=== PATIENT | female | born 1955 | race Caucasian/White ===

== ENCOUNTER 2019-07-06 20:19 | Inpatient (IN) | payer MEDICARE, OTHER ==
[~2019-07-06] VITALS: Ht 157.5 cm; Wt 157.0 kg
[2019-07-06] MEDS ORDERED: RIOMET500 MG/5 M (22:02)
[2019-07-06 22:03] LABS: BASO % 0.2 % (0.0-2.0); EOS % 0.2 % (0-4.0); GRAN # 3.3 (1.4-6.5); GRAN % 73.7 % (42.2-75.2); LYMPH # 0.7 (1.2-3.4); LYMPH % 16.2 % (20.0-51.0); MEAN CELL VOLUME 97 fl (80.0-100.0); MEAN CORPUSCULAR HGB CONC 31 g/dl (33.0-37.0); MEAN PLATELET VOLUME 10.6 fl (7.4-10.4); MONO # 0.4 (0.1-0.6); MONO % 9.3 % (1.7-9.3); PLATELET COUNT 136 K/mm3 (130-400); RED BLOOD COUNT 6.32 M/mm3 (4.10-5.30); REDCELL DISTRIBUTION WIDTH-CV 19.3 % (11.5-14.5)
[2019-07-06 22:08] LABS: ALBUMIN 3.3 gm/dL (3.5-5.0); BILIRUBIN,TOTAL 1.7 mg/dL (0.0-1.0); CALCIUM 8.2 mg/dL (8.4-10.2); CREATININE, serum 0.93 (0.52-1.25); MAGNESIUM 2.1 mg/dL (1.6-2.3); POTASSIUM 4.7 mmol/L (3.4-5.0); TOTAL PROTEIN 5.9 gm/dL (6.4-8.2)
[2019-07-06 22:20] LABS: TROPONIN-I 0.028 ng/mL (0.000-0.035)
[2019-07-06 22:20] LABS: HEMATOCRIT 61.5 % (37.0-47.0); HEMOGLOBIN 19.1 g/dl (12.5-16.0); MEAN CORPUSCULAR HEMOGLOBIN 30 pg (27.0-31.0)
[2019-07-06 22:38] LABS: TSH w REFLEX 3.55 uIU/mL (0.465-4.680)
[2019-07-06 23:37] LABS: ARTERIAL BLD GAS O2 SATURATION 89.9 % (92-100); ARTERIAL BLD GAS TCO2 CT 38.1; ARTERIAL BLOOD GAS BASE EXCESS 3.7 (-2-2); ARTERIAL BLOOD GAS HCO3 35.5 meq/L (22-26); ARTERIAL BLOOD GAS PO2 60.1 mmHg (80-100); ARTERIAL BLOOD GAS pH 7.25 (7.35-7.45)
[2019-07-06 23:38] LABS: ARTERIAL BLOOD GAS PCO2 83.8 mmHg (35-45)
[2019-07-07] VITALS (1171 sets, daily range): BP systolic 104–124; BP diastolic 68–93; PULSE 52–82; TEMP 97.4–98.2; O2SAT 61–100
--- NOTE | 2019-07-07 00:55 | NUR ---
Arrived to the unit via stretcher; On BIPAP on arrival. Patient alert and oriented able to answer most questions appropriately, however speech is slow patient requires some time to process her answers. Attached to all monitors at this time.
--- NOTE | 2019-07-07 01:30 | NUR ---
Hospitalist at bedside; stated may give PRN ativan to help patient tolerate the BIPAP mask. Patient frequently pulling at mask and re-adjusting on her face. Will attempt to replace the current mask with the full face mask when patient is more calm and tolerating BIPAP better.
--- NOTE | 2019-07-07 03:00 | NUR ---
Three attempts were made to place neil with 3 different staff members All attempts unsucessful. Placed [place]: will continue to monitor.
--- NOTE | 2019-07-07 03:14 | NUR ---
Currently on BIPAP; mostly tolerating well but will occasionally pull mask off or pull tubing from mask. Staff reminds patient at these times about the importance of keeping the mask on to mainatin adaquate respiratory status.
--- NOTE | 2019-07-07 04:00 | NUR ---
02 sats ranging 87-90% on 45% BIPAP. Notified RT. Repositioned and put HOB at 40 degrees. 02 up to 90-93% after repositioning; will continue to monitor.
[2019-07-07] MEDS ORDERED: GLUCOPHAGE500 MG/TAB PO (04:03)
[2019-07-07] MEDS ORDERED: COMBIRESP IH (04:12)
[2019-07-07] MEDS ORDERED: MAXZIDE-25MG TA1 TAB PO (04:13)
[2019-07-07 04:34] LABS: COLLECTION METHOD CLEAN CATCH
[2019-07-07 04:47] LABS: PH 5 (5-8); SQUAMOUS EPITHELIAL 0-2 /hpf; URINE APPEARANCE Clear; URINE BACTERIA None Seen /hpf; URINE BILIRUBIN Negative (NEGATIVE); URINE BLOOD 3+ (NEGATIVE); URINE COLOR Yellow; URINE GLUCOSE Negative (NEGATIVE); URINE KETONE Negative (NEGATIVE); URINE LEUKOCYTE ESTERASE Negative (NEGATIVE); URINE NITRATE Negative (NEGATIVE); URINE PROTEIN(semi-quant) 2+ (NEGATIVE); URINE UROBILINOGEN Negative (NEGATIVE)
[2019-07-07 04:48] LABS: URINE PROTEIN:CREAT RATIO 1.07 (0.00-0.14)
--- NOTE | 2019-07-07 05:00 | NUR ---
Patient Systolic BP 80's-90's with MAPS greater than 65. HR upper 50's. Hospitalist notified in person. Reported that BP and HR trended down after administration of PRN Ativan. Ok with BP readings at this time. Also informed hospitalist that neil catheter was not able to be placed and vane has an external female catheter.
--- NOTE | 2019-07-07 05:40 | NUR ---
Patient de-saturating to low 80's. Slight airleak heard adjusted facemask and head postition. O2 increased to 88%. Notified RT; increased FI02 to 50%
--- NOTE | 2019-07-07 06:34 | NUR ---
02 saturations currenlty 95% on 50% FI02.
[2019-07-07 06:46] LABS: BASO % 0.3 % (0.0-2.0); GRAN # 3.5 (1.4-6.5); LYMPH # 0.3 (1.2-3.4); LYMPH % 8.6 % (20.0-51.0); MEAN CELL VOLUME 99 fl (80.0-100.0); MEAN CORPUSCULAR HGB CONC 31 g/dl (33.0-37.0); MONO # 0.1 (0.1-0.6); MONO % 2.3 % (1.7-9.3); PLATELET COUNT 120 K/mm3 (130-400); RED BLOOD COUNT 6.28 M/mm3 (4.10-5.30); REDCELL DISTRIBUTION WIDTH-CV 19.4 % (11.5-14.5)
[2019-07-07 06:47] LABS: MEAN CORPUSCULAR HEMOGLOBIN 30 pg (27.0-31.0)
[2019-07-07 06:56] LABS: ALBUMIN 3.3 gm/dL (3.5-5.0); BILIRUBIN,TOTAL 1.7 mg/dL (0.0-1.0); CALCIUM 8.2 mg/dL (8.4-10.2); CREATININE, serum 1.03 (0.52-1.25); POTASSIUM 4.5 mmol/L (3.4-5.0)
--- NOTE | 2019-07-07 07:00 | NUR ---
RECEIVED REPORT FROM TATO BUCK. PT RESTING IN BED ON BIPAP WITH FIO2 50% AND 20/8. VSS. CALL LIGHT WITHIN REACH. NOTED PUREWICK IN PLACE AT THIS TIME.
--- NOTE | 2019-07-07 07:12 | NUR ---
Bedside report given to TATO Paredes and TATO Carnes. Patient care transfered.
[2019-07-07 07:24] LABS: ARTERIAL BLD GAS O2 SATURATION 94.6 % (92-100); ARTERIAL BLOOD GAS BASE EXCESS 2.4 (-2-2); ARTERIAL BLOOD GAS HCO3 34.4 meq/L (22-26); ARTERIAL BLOOD GAS PO2 76.2 mmHg (80-100); ARTERIAL BLOOD GAS pH 7.23 (7.35-7.45)
[2019-07-07 07:25] LABS: ARTERIAL BLOOD GAS PCO2 84.7 mmHg (35-45)
--- NOTE | 2019-07-07 07:25 | NUR ---
DR BOUCHER AT BEDSIDE FOR ASSESSMENT AND NOTIFIED OF BNP. NO NEW ORDERS RECEIVED AT THIS TIME. PHYSICIAN STATES WE WILL MONITOR AND SEE HOW PT DOES WITH CURRENT ORDER OF DIURETICS.
--- NOTE | 2019-07-07 08:51 | NUR ---
Report received from Ciarra GODWIN and care resumed. Pt on bipap upon assessment. Cassidy cath placed as ordered. Dr Banks at bedside and reviewed labs. Would like to intubate pt bases of ABG;s. Pt states she would like to speak with family regarding this decision. Multiple attempts made to reach , Justo, without success. KEKE Calles contacted and will reach out to [facility] for well check to pt's house. Pt currently having echo and venous duplex performed at bedside. Sarita ZEPEDA also called regarding PICC line order. Will continue to follow.
--- NOTE | 2019-07-07 09:28 | NUR ---
Pt's arrived and spoke with Dr Banks regarding pt status and need for intubation. would like to proceed but pt still very adament about not being intubated. Dr Banks stated he will check back later. AIVS at bedside placing PICC at this time.
[2019-07-07 10:43] LABS: ARTERIAL BLD GAS O2 SATURATION 94.2 % (92-100); ARTERIAL BLD GAS TCO2 CT 35.9; ARTERIAL BLOOD GAS BASE EXCESS 4.4 (-2-2); ARTERIAL BLOOD GAS HCO3 33.9 meq/L (22-26); ARTERIAL BLOOD GAS PO2 69.2 mmHg (80-100); ARTERIAL BLOOD GAS pH 7.32 (7.35-7.45)
--- NOTE | 2019-07-07 14:45 | NUR ---
DR VICTOR AT BEDSIDE FOR ASSESSMENT AND TO DISCUSS WITH PT AGAIN ABOUT HER WISHES OF INTUBATION. PT STILL REFUSES INTUBATION AT THIS TIME. ORDERS FOR ABG, RT AT BEDSIDE.
[2019-07-07 15:18] LABS: ARTERIAL BLD GAS O2 SATURATION 95.9 % (92-100); ARTERIAL BLD GAS TCO2 CT 38.1; ARTERIAL BLOOD GAS BASE EXCESS 10.7 (-2-2); ARTERIAL BLOOD GAS HCO3 36.5 meq/L (22-26); ARTERIAL BLOOD GAS PCO2 50.3 mmHg (35-45); ARTERIAL BLOOD GAS PO2 69.8 mmHg (80-100); ARTERIAL BLOOD GAS pH 7.48 (7.35-7.45)
--- NOTE | 2019-07-07 15:26 | NUR ---
DR VICTOR AT BEDSIDE DISCUSSING CODE STATUS. PT WISHES TO REMAIN A FULL CODE AND TO ONLY BE INTUBATED IN AN ACUTE CODE SITUATION.
--- NOTE | 2019-07-07 16:32 | NUR ---
MERCHANDISE TEAM MANAGER student met with the patient to discuss a discharge plan. The patient lives in [place] with her , Justo. The patient has a walker and reports independence with ADLs prior to this hospitalization. The patient's PCP is Dr. Biggs and receives medications from [facility] pharmacy with no difficulties. The patient does not have advanced directives in the EMR but was interested in a DPOA-HC form. MERCHANDISE TEAM MANAGER student provided the form. director of student services will continue to follow to ensure a safe discharge.
--- NOTE | 2019-07-07 18:20 | NUR ---
UPDATED AT BEDSIDE ON PT'S STATUS AND POC. VERBALIZED UNDERSTANDING. EDUCATED ON VISITING HOURS, VERBALIZED UNDERSTANDING. PT SLEEPING EASILY AT THIS TIME. VSS. PT REMAINS ON BIPAP AT 55%. CALL LIGHT WITHIN REACH. FC PATENT AND DRAINING TO GRAVITY.
--- NOTE | 2019-07-07 20:05 | NUR ---
Patient requesting to eat. Removed BIPAP and placed on 5L nc. Tolerated NC well ; 02 saturations ranging from 90-93%. Ate 100% of meal. Incontinuent of stool; provided a bed bath and repositioned. BIPAP replaced for bed after being off for approximately 45 minutes. No concerns at this time; will continue to monitor.
[2019-07-08] VITALS (1248 sets, daily range): BP systolic 106–127; BP diastolic 70–87; PULSE 59–91; TEMP 97.7–98.7; O2SAT 70–100
--- NOTE | 2019-07-08 02:30 | NUR ---
On break from BIPAP; on 8L oxymask and o2 mid 90's. Will continue to monitor.
[2019-07-08 05:14] LABS: ARTERIAL BLD GAS TCO2 CT 35.9; ARTERIAL BLOOD GAS HCO3 34.3 meq/L (22-26); ARTERIAL BLOOD GAS PCO2 52.2 mmHg (35-45); ARTERIAL BLOOD GAS PO2 70.5 mmHg (80-100); ARTERIAL BLOOD GAS pH 7.44 (7.35-7.45)
[2019-07-08 05:44] LABS: MEAN CORPUSCULAR HGB CONC 32 g/dl (33.0-37.0); MEAN PLATELET VOLUME 10.8 fl (7.4-10.4); PLATELET COUNT 121 K/mm3 (130-400); RED BLOOD COUNT 5.61 M/mm3 (4.10-5.30); REDCELL DISTRIBUTION WIDTH-CV 18.3 % (11.5-14.5)
[2019-07-08 05:49] LABS: HEMATOCRIT 52.7 % (37.0-47.0); HEMOGLOBIN 16.9 g/dl (12.5-16.0); MEAN CELL VOLUME 94 fl (80.0-100.0); MEAN CORPUSCULAR HEMOGLOBIN 30 pg (27.0-31.0)
[2019-07-08 05:52] LABS: CALCIUM 7.9 mg/dL (8.4-10.2); CREATININE, serum 0.97 (0.52-1.25); POTASSIUM 4.2 mmol/L (3.4-5.0)
[2019-07-08 06:07] LABS: ANISOCYTOSIS 2+; LYMPHOCYTE 3 % (20.0-51.0); NEUTROPHILS 91 % (42.0-75.2); PLATELET ESTIMATE DECREASED (NORMAL)
[2019-07-08 06:08] LABS: HYPOCHROMIA 1+
--- NOTE | 2019-07-08 14:40 | NUR ---
Action: SW met with SM and her was present in session. PAtient did give SW permission to discuss information with her in the room. SW followed up as requested, as patient was thinking about submitting a DPOA. Patient was still undecisive and so this SW discussed the importance of a DPOA. PAtient asked this SW to leave one as her already had one that stated she would manage decisions if needed. Action: SW left DPOA form which was partially filled out with patient and her .
--- NOTE | 2019-07-08 19:15 | NUR ---
Assessment complete; patient currenlty sitting in recliner. Denies any complaints at this time. VS within normal limits. Currenlty on 4L NC and will place BIPAP when ready for bed. Lung sounds wheezy; will get breathing treatment via RT.
--- NOTE | 2019-07-08 22:20 | NUR ---
Requesting to get back into chair from recliner;assisted with two staff members and tolerated transfere well. Does not want to put BIPAP on at this time as not ready to sleep. Will check back around 2300.
[2019-07-09] VITALS (760 sets, daily range): BP systolic 101–131; BP diastolic 69–99; PULSE 68–96; TEMP 97.6–98.3; O2SAT 82–100
--- NOTE | 2019-07-09 | NUR ---
Placed on BIPAP at time, and RT notified. No concerns or complaints reported.
--- NOTE | 2019-07-09 03:55 | NUR ---
Complaining of pain on nose from wearing mask. Also reporting that she "can't sleep the the mask" and has been pulling and tugging on the mask. Will take a break from BIPAP at this time. Re-placed HF cannula at 4L.
[2019-07-09 05:41] LABS: HEMOGLOBIN 16.8 g/dl (12.5-16.0); MEAN CELL VOLUME 96 fl (80.0-100.0); MEAN CORPUSCULAR HEMOGLOBIN 30 pg (27.0-31.0); MEAN CORPUSCULAR HGB CONC 32 g/dl (33.0-37.0); MEAN PLATELET VOLUME 10.3 fl (7.4-10.4); PLATELET COUNT 104 K/mm3 (130-400); RED BLOOD COUNT 5.56 M/mm3 (4.10-5.30); REDCELL DISTRIBUTION WIDTH-CV 18.4 % (11.5-14.5)
[2019-07-09 05:56] LABS: HEMATOCRIT 53.2 % (37.0-47.0)
[2019-07-09 06:04] LABS: CALCIUM 7.7 mg/dL (8.4-10.2); CREATININE, serum 0.89 (0.52-1.25); POTASSIUM 3.4 mmol/L (3.4-5.0)
[2019-07-09 06:10] LABS: ANISOCYTOSIS 2+; HYPOCHROMIA 2+; LYMPHOCYTE 1 % (20.0-51.0); NEUTROPHILS 93 % (42.0-75.2); PLATELET ESTIMATE DECREASED (NORMAL)
--- NOTE | 2019-07-09 07:17 | NUR ---
Bedside report given to TATO Smith. Patient care transfered.
--- NOTE | 2019-07-09 12:56 | NUR ---
REPORT GIVEN TO TATO WASHINGTON. PT TO GO TO MEDICAL FLOOR RM 358.
--- NOTE | 2019-07-09 13:24 | NUR ---
PT TO MEDICAL FLOOR RM 358 VIA WC. PERSONAL ITEMS WITH PT TO ROOM TO INCLUDE PT NEBULIZER. PT CHART IN [facility]ICAL NURSING [facility] [place]. TATO WASHINGTON AWARE OF PTS ARRIVAL TO 358 AND PRESENT TO HELP ASSIST PT FROM WC TO RESTROOM.
--- NOTE | 2019-07-09 19:10 | NUR ---
Pt resting in bed since arriving to floor, no C/O pain.
--- NOTE | 2019-07-09 20:45 | NUR ---
Shift assessment complete. Pt resting in bed, awake, a&o, cooperative c cares. Pt denies pain or other c/o at this time. PICC noted to R upper arm, patent c good blood return. O2 per NC. Pt denies needs at this time. Call light in reach, bed alarm on. Will continue to monitor.
[2019-07-10 00:31] VITALS: BP 108/62; PULSE 69; TEMP 97.6
[2019-07-10 03:54] VITALS: BP 102/67; PULSE 86; TEMP 97.8
[2019-07-10 06:10] LABS: HEMOGLOBIN 16.8 g/dl (12.5-16.0); MEAN CELL VOLUME 97 fl (80.0-100.0); MEAN CORPUSCULAR HEMOGLOBIN 30 pg (27.0-31.0); MEAN CORPUSCULAR HGB CONC 32 g/dl (33.0-37.0); MEAN PLATELET VOLUME 10.8 fl (7.4-10.4); PLATELET COUNT 102 K/mm3 (130-400); RED BLOOD COUNT 5.53 M/mm3 (4.10-5.30); REDCELL DISTRIBUTION WIDTH-CV 17.8 % (11.5-14.5)
[2019-07-10 06:14] LABS: HEMATOCRIT 53.4 % (37.0-47.0)
[2019-07-10 06:30] LABS: CALCIUM 7.6 mg/dL (8.4-10.2); CREATININE, serum 0.93 (0.52-1.25); MAGNESIUM 1.5 mg/dL (1.6-2.3); POTASSIUM 3.2 mmol/L (3.4-5.0)
[2019-07-10 06:31] LABS: ANISOCYTOSIS 2+; HYPOCHROMIA 2+; LYMPHOCYTE 2 % (20.0-51.0); NEUTROPHILS 97 % (42.0-75.2); PLATELET ESTIMATE DECREASED (NORMAL)
[2019-07-10 08:00] VITALS: BP 118/70; PULSE 85; TEMP 98.1
--- NOTE | 2019-07-10 09:55 | NUR ---
SW attended clinical rounds. The patient's oxygen needs are up from yesterday. PT/OT have been ordered. SW to continue to follow to assist with recommendations.
--- NOTE | 2019-07-10 10:10 | NUR ---
Assessment completed, alert/oriented, vital signs stable, denies pain or discomfort, she reprots feeling better today, she is on 2-4L. o2 and is not being very compliant with bi-pap/ reports " she does not like it", we have explained benefits of wearing it though, heart RRR/ distal pulses are palpable but difficult to palpate as she has 3+ edema to BLE, IV lasix given and patient has neil for accurate I/O, replaicng Mg and K, discussed plan of care with hospitalist, she denies needs at this time
--- NOTE | 2019-07-10 12:17 | NUR ---
First visit from the dry cleaner. No needs right now.
[2019-07-10 12:26] VITALS: BP 125/75; PULSE 84; TEMP 98.5
--- NOTE | 2019-07-10 15:44 | NUR ---
GUERA met with the patient to review discharge plan and to discuss PT/OT's recommendation of home with family assistance vs post-acute rehab. The patient reports that she may be open to post-acute rehab, but needs to discuss this option and the different SNF's with her chantal. GUERA provided the patient with Medicare.[employer]'s list of nursing homes in and around the [facility]. GUERA to continue to follow.
[2019-07-10 16:50] VITALS: BP 126/78; PULSE 83; TEMP 98.3
--- NOTE | 2019-07-10 19:00 | NUR ---
REPORT RECEIVED FROM TATO MORELAND, CARE OF PT ASSUMED AT THIS TIME. BEDSIDE ROUNDS COMPLETED AND ALL PT NEEDS MET. CALL LIGHT WITHIN REACH.
--- NOTE | 2019-07-10 19:48 | NUR ---
PT IS DROWSY, AWAKENS EASILY, OX4, PLEASANT. PT DENIES FEELING SOB AT REST. O2 AT 3L PER NC AT THIS TIME. PT APPEARS DYSPNEIC WITH ACTIVITY WHEN MOVING IN BED. EDEMA NOTED TO BLE'S 3-4+ PITTING THROUGH MIDTIBS. PICC LINE TO RUE, CLEAR, WRAPPED WITH CHALO WRAP. LS ARE COARSE WITH AUDIBLE INS/EXP WHEEZES NOTED THROUGHOUT ALL BATRES. HR REG, RADIAL PULSES PALPABLE 2+, PEDAL PULSES 1+ BILAT. TREVIÑO IN PLACE AND IS DRAINING CLEAR, YELLOW URINE. PT DENIES ANY PAIN AT THIS TIME. CALL LIGHT WITHIN REACH.
[2019-07-10 20:23] VITALS: BP 111/72; PULSE 92; TEMP 98
[2019-07-11] VITALS (7 sets, daily range): BP systolic 105–125; BP diastolic 68–76; PULSE 72–93; TEMP 97.8–98.6
--- NOTE | 2019-07-11 06:06 | NUR ---
PT HAS SLEPT THROUGH THE NIGHT WITHOUT ISSUES. O2 IN PLACE AT 4L PER NC, FREQUENTLY REPLACING CANNULA TO NOSE WHILE PT SLEEPING. PT HAS DENIED PAIN OR OTHER ISSUES. TREVIÑO CATH DRAINING CLEAR, YELLOW URINE. NO DISTRESS NOTED THROUGH THE NIGHT. CALL LIGHT WITHIN REACH.
[2019-07-11 06:32] LABS: BASO % 0.2 % (0.0-2.0); GRAN # 3.9 (1.4-6.5); GRAN % 76.9 % (42.2-75.2); HEMOGLOBIN 16.4 g/dl (12.5-16.0); LYMPH # 0.6 (1.2-3.4); MEAN CELL VOLUME 98 fl (80.0-100.0); MEAN CORPUSCULAR HEMOGLOBIN 30 pg (27.0-31.0); MEAN CORPUSCULAR HGB CONC 31 g/dl (33.0-37.0); MEAN PLATELET VOLUME 10.5 fl (7.4-10.4); MONO # 0.5 (0.1-0.6); MONO % 10.1 % (1.7-9.3); PLATELET COUNT 88 K/mm3 (130-400); RED BLOOD COUNT 5.47 M/mm3 (4.10-5.30); REDCELL DISTRIBUTION WIDTH-CV 17.4 % (11.5-14.5)
[2019-07-11 06:42] LABS: CALCIUM 7.5 mg/dL (8.4-10.2); CREATININE, serum 0.8 (0.52-1.25); MAGNESIUM 1.8 mg/dL (1.6-2.3); POTASSIUM 3.1 mmol/L (3.4-5.0)
[2019-07-11 07:06] LABS: HEMATOCRIT 53.6 % (37.0-47.0)
--- NOTE | 2019-07-11 07:58 | NUR ---
REFUSED INCRUSE, STATING SHE GETS NO RESULT FROM IT.
--- NOTE | 2019-07-11 09:00 | NUR ---
Patient sitting up in bed, trying to watch TV, but cable is not working. Nursing staff is aware. Patient is A&Ox4, denies pain and discomfort. IV CDI. VSS, 4L NC O2, no reported SOB. No further needs expressed from patient. Call light within reach. Bed alarm on.
--- NOTE | 2019-07-11 09:22 | NUR ---
GUERA attended clinical rounds. The patient is to have her catheter removed today. The hospitalist discussed post-acute rehab and a tentative discharge for tomorrow or . The patient reports that she would be open to post-acute rehab. GUERA then followed up with the patient. The patient reports that she would be agreeable to rehab and would prefer a facility in [place]. GUERA presented and explained the Patient Choice Form to the patient. The patient preferred either [facility], [facility], or [facility]. Patient Choice Form signed by the patient and she was provided a copy. GUERA contacted and faxed a referral to all three facilities. SW awaiting their screens.
--- NOTE | 2019-07-11 09:49 | NUR ---
Sheree, at [facility], reports that they are able to accept the patient. SW to inform the patient and will continue to follow.
--- NOTE | 2019-07-11 11:00 | NUR ---
Cassidy catheter removed. Pericare provided with cleansing cloths before and after removal. 10mls sterile water in balloon removed. Patient tolerated well. Patient informed to call nursing staff when needing to use the restroom. Patient verbalized an understanding. Call light within reach
--- NOTE | 2019-07-11 12:51 | NUR ---
Marlon at [facility], reports that they are able to accept the patient. SW to inform the patient and will continue to follow.
--- NOTE | 2019-07-11 15:11 | NUR ---
Follow-up; Patient thanked Conventions Assistant for looking in on her though a physical therapist was with her. Conventions Assistant let patient know she was available throughout the day to listen and/or offer spiritual prayer.
--- NOTE | 2019-07-11 16:27 | NUR ---
GUERA met with the patient to inform of [facility] acceptance. The patient reports that she would like to discuss which facility to go to with her this evening. GUERA to continue to follow.
--- NOTE | 2019-07-11 17:00 | NUR ---
Pt stable this afternoon. Pt incontinent of urine after neil discontinued. Pt pericares provided by john. Pt reminded to call for help to use the restroom. Pt has call light in reach and nasal cannula in place. Pt denies pain or SOB. Pt also reminded of her 1L fluid restriction. Pt denies further needs at this time.
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
--- NOTE | 2019-07-11 19:13 | NUR ---
Pt report given to Gretel GODWIN.
--- NOTE | 2019-07-11 20:15 | NUR ---
Shift assessment complete. Pt resting in bed, awake, a&o, cooperative c cares. Pt denies pain or any other c/o at this time. PICC noted to R upper arm, patent c good blood return. Tele in place. O2 per NC. Pt denies needs at this time. Call light in reach, bed alarm on. Will continue to monitor.
[2019-07-12 03:53] VITALS: BP 100/59; PULSE 100; TEMP 97.6
[2019-07-12 06:19] LABS: HEMOGLOBIN 16.2 g/dl (12.5-16.0); MEAN CELL VOLUME 100 fl (80.0-100.0); MEAN CORPUSCULAR HEMOGLOBIN 30 pg (27.0-31.0); MEAN CORPUSCULAR HGB CONC 30 g/dl (33.0-37.0); PLATELET COUNT 91 K/mm3 (130-400); REDCELL DISTRIBUTION WIDTH-CV 17.5 % (11.5-14.5)
[2019-07-12 06:21] LABS: HEMATOCRIT 54.7 % (37.0-47.0)
[2019-07-12 06:32] LABS: CALCIUM 7.5 mg/dL (8.4-10.2); CREATININE, serum 0.74 (0.52-1.25); MAGNESIUM 1.7 mg/dL (1.6-2.3)
[2019-07-12 06:39] LABS: POTASSIUM 2.8 mmol/L (3.4-5.0)
--- NOTE | 2019-07-12 07:14 | NUR ---
RA SPO2 84% A SLEEP. PLACED ON 4 LPM NC 91%
--- NOTE | 2019-07-12 07:30 | NUR ---
Initial; pt is laying in bed, last K+ level was 2.8, started K+ protocol. Pt is content, no complaint of pain or discomfort. Assessment complete. Pt has end expiratory wheezing in upper lobes bilaterally, and clear in all other lobes. 3+ pitting edema bilateral lower extremeties. Pt is a 1-2 person assist.
[2019-07-12 07:40] VITALS: BP 111/66; PULSE 72; PULSE 84; TEMP 97.7
[2019-07-12 07:56] LABS: LYMPHOCYTE 22 % (20.0-51.0); NEUTROPHILS 70 % (42.0-75.2); PLATELET ESTIMATE DECREASED (NORMAL)
--- NOTE | 2019-07-12 08:54 | NUR ---
Compa, at [facility], reports that they are able to accept the patient. SW to inform the patient.
--- NOTE | 2019-07-12 09:47 | NUR ---
GUERA met with the patient and the patient's , Justo, to inform of all three facilities being able to accept and to find out their preference. The patient's reports that [facility] is closer to their home and would prefer them. The patient was in agreeance to this. GUERA contacted and updated Sheree at [facility]. SW to update [employer] and [facility]. The patient's reports that he does not have a cell phone and is normally at work. He requested that SW call his home phone and to just leave a message, if he does not answer, to inform of when the patient discharges. SW to continue to follow.
[2019-07-12] MEDS ORDERED: ZYRTEC 10MG10 MG PO (10:16)
[2019-07-12] MEDS ORDERED: IPRATROPIUM BROM3 M1 IH (10:21)
[2019-07-12] MEDS ORDERED: INCRUSE EL62.5 MCG/A IH (10:21)
[2019-07-12] MEDS ORDERED: RT ALBUTER2.5 MG/0.5 IH (10:22)
[2019-07-12] MEDS ORDERED: RT ADVAIR HFA 1112 G IH (10:23)
[2019-07-12] MEDS ORDERED: MIRALAX510G PO (10:23)
--- NOTE | 2019-07-12 10:25 | NUR ---
BIPAP SETTING ON 07/09/19 20/ RR 24 55%
[2019-07-12] MEDS ORDERED: LASIX 20MG TABL20 MG PO ×2 (10:26→11:54)
[2019-07-12] MEDS ORDERED: PREDNISONE10 MG PO (10:26)
[2019-07-12] MEDS ORDERED: PREDNISONE20 MG PO (10:27)
[2019-07-12] MEDS ORDERED: K-DUR20 MEQ PO (10:30)
[2019-07-12 11:07] VITALS: BP 106/75; PULSE 84; TEMP 98.2
--- NOTE | 2019-07-12 14:10 | NUR ---
PICC intact right upper arm with sterile dressing change done with insertion site cleansed with chloraprep x 1, chlorhexidine impregnated disk applied, skin prep, stat lock, and tegaderm applied. no signs or symptoms of IV complications noted. no concerns voiced. re-wrapped with matty to protect catheter. plan is for discharge today with PICC.
--- NOTE | 2019-07-12 15:13 | NUR ---
The patient is to tentatively discharge today, 07/12, to [facility] for a skilled stay after receiving potassium. SW presented and explained the IM form to the patient. The patient verbalized understanding, signed, and she was provided a copy.
--- NOTE | 2019-07-12 15:31 | NUR ---
Spoke with provider regarding potassium replacement protocol. Protocol requires 3 hour potassium re-check after last administration according to potassium level. Was instructed to re-check potassium in one hour, provider did place order. Did inquire if PICC line could be left in for 1 week per IV therapy request. Order was placed by provider for this.
[2019-07-12 15:39] VITALS: BP 135/85; PULSE 84; TEMP 98.6
--- NOTE | 2019-07-12 16:39 | NUR ---
The patient is ready to discharge today, 07/12, to [facility] for a skilled stay. Transportation to be provided by [facility]. SW attempted to contact the patient's to inform. The patient's does not have a voicemail set up. The patient gave SW permission to call her 's employer. The patient's was out of the office. SW left a message. No additional needs at this time.
--- NOTE | 2019-07-12 17:13 | NUR ---
Patient discharged to [facility] at 1650, was transported by [facility] transportation VIA wheelchair. Was assisted in dressing, brief changed and pericare provided. Patient was incontinent of urine. Assisted to wheelchair, oxygen connected to residential tank. Report given to [facility] staff. Number provided for staff for any questions needed.
== END 2019-07-12 16:50 | DRG 189 ==
LOC: COL.ER 20:19 → ICU 22:33 → MEDICAL 07-09 13:38
PROVIDERS: Emergency Medicine; Hospitalist; Internal Medicine Pulmonary Disease; Nurse Practitioner Family; Physician Assistant; Student in an Organized Health Care Education/Training Program
PROC: 02HV33Z Insertion of Infusion Device into Superior Vena Cava, Percutaneous Approach (ICD-10-PCS; principal; 2019-07-07)
DX: J96.01 Acute respiratory failure with hypoxia (principal); Z68.41 Body mass index [BMI] 40.0-44.9, adult; I50.32 Chronic diastolic (congestive) heart failure; J44.1 Chronic obstructive pulmonary disease with (acute) exacerbation; E87.2 Acidosis; E66.2 Morbid (severe) obesity with alveolar hypoventilation; E87.1 Hypo-osmolality and hyponatremia; I27.81 Cor pulmonale (chronic); J96.02 Acute respiratory failure with hypercapnia; E83.42 Hypomagnesemia; E87.8 Other disorders of electrolyte and fluid balance, not elsewhere classified; E87.6 Hypokalemia; R21 Rash and other nonspecific skin eruption; I27.20 Pulmonary hypertension, unspecified; I45.10 Unspecified right bundle-branch block; D69.6 Thrombocytopenia, unspecified; E11.9 Type 2 diabetes mellitus without complications; R53.81 Other malaise; D75.1 Secondary polycythemia; F17.210 Nicotine dependence, cigarettes, uncomplicated; Z79.84 Long term (current) use of oral hypoglycemic drugs; Z88.2 Allergy status to sulfonamides; Z88.0 Allergy status to penicillin
CPT/HCPCS: 99223-AI; 99232-AI; 99233-AI; 99239; C1751; J1650; J1940; J1956; J2930; J3475; J3480; J7120; J7512; Q9967

== ENCOUNTER 2019-07-14 16:44 | Emergency (ER) | payer MEDICARE, OTHER ==
[~2019-07-14] VITALS: Ht 157.5 cm; Wt 95.5 kg
[~2019-07-14 16:44] MED LIST: COMBIRESP IH; GLUCOPHAGE500 MG/TAB PO; INCRUSE EL62.5 MCG/A IH; IPRATROPIUM BROM3 M1 IH; K-DUR20 MEQ PO; LASIX 20MG TABL20 MG PO; MAXZIDE-25MG TA1 TAB PO; MIRALAX510G PO; PREDNISONE10 MG PO; PREDNISONE20 MG PO; RIOMET500 MG/5 M; RT ADVAIR HFA 1112 G IH; RT ALBUTER2.5 MG/0.5 IH; ZYRTEC 10MG10 MG PO
[2019-07-14 16:46] VITALS: TEMP 98.1
[2019-07-14 17:47] LABS: EOS % 0.2 % (0-4.0); GRAN # 4.6 (1.4-6.5); GRAN % 85.2 % (42.2-75.2); HEMOGLOBIN 15.9 g/dl (12.5-16.0); LYMPH # 0.4 (1.2-3.4); LYMPH % 7.2 % (20.0-51.0); MEAN CELL VOLUME 99 fl (80.0-100.0); MEAN CORPUSCULAR HEMOGLOBIN 30 pg (27.0-31.0); MEAN CORPUSCULAR HGB CONC 31 g/dl (33.0-37.0); MEAN PLATELET VOLUME 10.4 fl (7.4-10.4); MONO # 0.3 (0.1-0.6); MONO % 5.9 % (1.7-9.3); PLATELET COUNT 82 K/mm3 (130-400); RED BLOOD COUNT 5.27 M/mm3 (4.10-5.30)
[2019-07-14 17:50] LABS: HEMATOCRIT 52.2 % (37.0-47.0)
[2019-07-14 17:57] LABS: ALBUMIN 2.8 gm/dL (3.5-5.0); BILIRUBIN,TOTAL 1.5 mg/dL (0.0-1.0); CALCIUM 7.4 mg/dL (8.4-10.2); CREATININE, serum 0.68 (0.52-1.25); POTASSIUM 4.5 mmol/L (3.4-5.0); TOTAL PROTEIN 5.1 gm/dL (6.4-8.2)
[2019-07-14 18:02] LABS: INR 0.9 (0.8-3.0); PROTHROMBIN TIME 10.7 SECONDS (9.7-12.8)
[2019-07-14 18:02] LABS: ARTERIAL BLD GAS O2 SATURATION 95.5 % (92-100); ARTERIAL BLD GAS TCO2 CT 50.7; ARTERIAL BLOOD GAS BASE EXCESS 17.3 (-2-2); ARTERIAL BLOOD GAS HCO3 48.1 meq/L (22-26); ARTERIAL BLOOD GAS PO2 73.8 mmHg (80-100); ARTERIAL BLOOD GAS pH 7.37 (7.35-7.45)
[2019-07-14 18:03] LABS: ARTERIAL BLOOD GAS PCO2 84.6 mmHg (35-45)
[2019-07-14 18:26] LABS: TROPONIN-I 0.048 ng/mL (0.000-0.035)
[2019-07-14 21:10] VITALS: BP 132/67; PULSE 84
== END 2019-07-14 21:12 | disposition short-term general hospital (02) ==
LOC: COL.ER 16:44
PROVIDERS: Emergency Medicine
DX: J96.90 Respiratory failure, unspecified, unspecified whether with hypoxia or hypercapnia (principal); I50.9 Heart failure, unspecified; J44.9 Chronic obstructive pulmonary disease, unspecified; R79.89 Other specified abnormal findings of blood chemistry; E66.9 Obesity, unspecified; R40.2412 Glasgow coma scale score 13-15, at arrival to emergency department; F17.210 Nicotine dependence, cigarettes, uncomplicated; Z79.51 Long term (current) use of inhaled steroids
CPT/HCPCS: J1940

== ENCOUNTER 2019-11-29 11:04 | Inpatient (IN) | payer MEDICARE, OTHER ==
[~2019-11-29] VITALS: Ht 152.4 cm; Wt 94.3 kg
[2019-11-29] VITALS (98 sets, daily range): BP systolic 73–130; BP diastolic 23–94; PULSE 46–74; TEMP 97.6–98.5; O2SAT 91–100
[2019-11-29 11:45] LABS: ARTERIAL BLD GAS O2 SATURATION 87.4 % (92-100); ARTERIAL BLD GAS TCO2 CT 47.4; ARTERIAL BLOOD GAS BASE EXCESS 8.6 (-2-2); ARTERIAL BLOOD GAS HCO3 43.9 meq/L (22-26); ARTERIAL BLOOD GAS PO2 59.3 mmHg (80-100)
[2019-11-29 11:46] LABS: COLLECTION METHOD CLEAN CATCH
[2019-11-29 11:47] LABS: ARTERIAL BLOOD GAS PCO2 115.4 mmHg (35-45)
[2019-11-29 11:55] LABS: MUCOUS Present /lpf; PH 6 (5-8); SQUAMOUS EPITHELIAL 0-2 /hpf; URINE APPEARANCE Hazy; URINE BACTERIA None Seen /hpf; URINE BILIRUBIN Negative (NEGATIVE); URINE BLOOD 2+ (NEGATIVE); URINE COLOR Yellow; URINE GLUCOSE Negative (NEGATIVE); URINE KETONE Negative (NEGATIVE); URINE LEUKOCYTE ESTERASE Negative (NEGATIVE); URINE NITRATE Negative (NEGATIVE); URINE PROTEIN(semi-quant) 2+ (NEGATIVE); URINE RBC 0-2 /hpf
[2019-11-29 11:56] LABS: INR 1.2 (0.8-3.0); PROTHROMBIN TIME 13.5 SECONDS (9.7-12.8)
[2019-11-29 12:01] LABS: BASO % 0.2 % (0.0-2.0); EOS % 0.1 % (0-4.0); GRAN # 6.8 (1.4-6.5); GRAN % 83.8 % (42.2-75.2); HEMATOCRIT 60.6 % (37.0-47.0); HEMOGLOBIN 18.7 g/dl (12.5-16.0); LYMPH # 0.6 (1.2-3.4); LYMPH % 7.4 % (20.0-51.0); MEAN CELL VOLUME 97 fl (80.0-100.0); MEAN CORPUSCULAR HEMOGLOBIN 30 pg (27.0-31.0); MEAN CORPUSCULAR HGB CONC 31 g/dl (33.0-37.0); MEAN PLATELET VOLUME 10.7 fl (7.4-10.4); MONO # 0.6 (0.1-0.6); MONO % 7.9 % (1.7-9.3); PLATELET COUNT 141 K/mm3 (130-400); RED BLOOD COUNT 6.27 M/mm3 (4.10-5.30); REDCELL DISTRIBUTION WIDTH-CV 15.9 % (11.5-14.5)
[2019-11-29 12:03] LABS: ALBUMIN 3.4 gm/dL (3.5-5.0); BILIRUBIN,TOTAL 1.7 mg/dL (0.0-1.0); CALCIUM 7.9 mg/dL (8.4-10.2); CREATININE, serum 1.4 (0.52-1.25); POTASSIUM 4.3 mmol/L (3.4-5.0); TOTAL PROTEIN 6.2 gm/dL (6.4-8.2)
[2019-11-29 12:14] LABS: TROPONIN-I 0.043 ng/mL (0.000-0.035)
--- NOTE | 2019-11-29 13:51 | NUR ---
REPORT RECEIVED FROM LUIS GODWIN,
--- NOTE | 2019-11-29 16:00 | NUR ---
DR FROST PRESENT TO PERFORM BRONCHOSCOPY. CONSENT OBTAINED FROM . LIDOACAINE INSTILLED VIA ETT PRIOR TO PROCEDURE. DR FROST PERFORMED BRONCH X 5 MINS. PT TOLERATED WELL. PROVIDER STATES PATIENT'S AIRWAYS EXTREMELY INFLAMED AND REDDENED. SMALL PLUG SUCTIONED OUT DURING BRONCH.
--- NOTE | 2019-11-29 16:00 | NUR ---
DISCONTINUED PER DR FROST D/T PT'S BRADYCARDIA.
--- NOTE | 2019-11-29 16:00 | NUR ---
DR CONTI AND DR BOSS AWARE OF CONSULTS
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
[2019-11-29 17:56] LABS: ARTERIAL BLD GAS O2 SATURATION 93.5 % (92-100); ARTERIAL BLD GAS TCO2 CT 33.3; ARTERIAL BLOOD GAS BASE EXCESS 9.6 (-2-2); ARTERIAL BLOOD GAS HCO3 32.1 meq/L (22-26); ARTERIAL BLOOD GAS PCO2 36.3 mmHg (35-45); ARTERIAL BLOOD GAS PO2 55.3 mmHg (80-100); ARTERIAL BLOOD GAS pH 7.57 (7.35-7.45)
[2019-11-29 21:53] LABS: ARTERIAL BLOOD GAS PCO2 32.9 mmHg (35-45); ARTERIAL BLOOD GAS PO2 65.1 mmHg (80-100); ARTERIAL BLOOD GAS pH 7.58 (7.35-7.45)
[2019-11-29 21:54] LABS: ARTERIAL BLD GAS O2 SATURATION 96.1 % (92-100); ARTERIAL BLOOD GAS BASE EXCESS 8.5 (-2-2); ARTERIAL BLOOD GAS HCO3 30.1 meq/L (22-26)
[2019-11-30] VITALS (850 sets, daily range): BP systolic 86–136; BP diastolic 42–94; PULSE 70–86; TEMP 97–98.5; O2SAT 64–100
--- NOTE | 2019-11-30 05:20 | NUR ---
PT does not qualify for weaning trial -- intubated <24 hours.
[2019-11-30 05:22] LABS: BASO % 0.1 % (0.0-2.0); EOS % 0.1 % (0-4.0); GRAN # 7.9 (1.4-6.5); GRAN % 93.6 % (42.2-75.2); LYMPH # 0.2 (1.2-3.4); LYMPH % 1.9 % (20.0-51.0); MEAN CORPUSCULAR HEMOGLOBIN 30 pg (27.0-31.0); MEAN CORPUSCULAR HGB CONC 33 g/dl (33.0-37.0); MEAN PLATELET VOLUME 11.5 fl (7.4-10.4); MONO # 0.3 (0.1-0.6); MONO % 3.8 % (1.7-9.3); PLATELET COUNT 148 K/mm3 (130-400); RED BLOOD COUNT 6.03 M/mm3 (4.10-5.30); REDCELL DISTRIBUTION WIDTH-CV 15.8 % (11.5-14.5)
[2019-11-30 05:27] LABS: ARTERIAL BLD GAS O2 SATURATION 96.6 % (92-100); ARTERIAL BLD GAS TCO2 CT 24.8; ARTERIAL BLOOD GAS BASE EXCESS 2.9 (-2-2); ARTERIAL BLOOD GAS PCO2 28.6 mmHg (35-45); ARTERIAL BLOOD GAS pH 7.54 (7.35-7.45)
[2019-11-30 05:28] LABS: HEMATOCRIT 54.9 % (37.0-47.0); MEAN CELL VOLUME 91 fl (80.0-100.0)
[2019-11-30 05:36] LABS: BILIRUBIN,TOTAL 2.7 mg/dL (0.0-1.0); CALCIUM 7.7 mg/dL (8.4-10.2); CREATININE, serum 1.21 (0.52-1.25); MAGNESIUM 2.4 mg/dL (1.6-2.3); PHOSPHOROUS 3.3 mg/dL (2.5-4.5); POTASSIUM 4.1 mmol/L (3.4-5.0); TOTAL PROTEIN 5.4 gm/dL (6.4-8.2)
--- NOTE | 2019-11-30 06:00 | NUR ---
PT tolerated ventilator well throughout the night, the only agitation noticed was during cares, turning, and oral care. During the PT's bed bath, the PT was noticably shaking as staff was attempting to wash the dirt/ skin off the PT. A sunburn-like redness was noted across the PT's chest and abdomen. PT's eyes were noted to be very reddened and swollen, a warm washcloth was placed over the PT's eyes for comfort.
[2019-11-30 06:59] LABS: CREATININE, serum 1.2 (0.52-1.25); SODIUM 137 mmol/L (137-145)
--- NOTE | 2019-11-30 07:00 | NUR ---
Report given to TATO Meyer.
--- NOTE | 2019-11-30 07:40 | NUR ---
Bedside report received from Giancarlo Jackman.
--- NOTE | 2019-11-30 10:10 | NUR ---
Anesthesia notified to change ETT with guidewire d/t air leak in current ETT.
--- NOTE | 2019-11-30 10:30 | NUR ---
PT REINTUBATED BY METAL NUMERICAL TOOL PROGRAMMER WITH GUIDE WIRE AND GLIDE SCOPE WITH NO ISSUES. SIZE 7.5 ETT SECURED TO 23CM AT THE TEETH. +ETCO2 COLOR CHANGE AND +BLBS. PT PLACED BACK ON PREVIOUS VENT SETTING ORDERED PER DR FROST.
--- NOTE | 2019-11-30 10:30 | NUR ---
Alcides Carpenter CRNA at bedside to replace ETT. Respiratory therapy at bedside. Daniel Carpenter CRNA gave pt 5mg Vecoronium at 1019. 7.5 ETT replaced at 1024, 23 at teeth. Positive end tidal CO2, breath sounds equal bilaterally. ETT secured. OGT secured at 55cm @lip. Pt tolerated procedure well. Vital signs remain stable.
--- NOTE | 2019-11-30 11:43 | NUR ---
Wound care notified of consult.
--- NOTE | 2019-11-30 11:45 | NUR ---
Pt's in room. Updated on pt status and plan of care. No questions at this time. ICU number given to pt's . Pt's plans to go back to work tomorrow.
--- NOTE | 2019-11-30 12:45 | NUR ---
Social work notified of new consult. SW talked with yesterday. Will follow up.
[2019-11-30 13:55] LABS: URINE PROTEIN:CREAT RATIO 0.9 (0.00-0.14)
--- NOTE | 2019-11-30 18:21 | NUR ---
Pt on sedation vacation. Became very restless. trying to move right arm up. Bilat soft wrist restraint remain on. Reoriented pt to place and situation. Pt nods head yes/no to questions. Squeezes hands on command. Pt still remains restless after reorientation. Versed gtt increased for sedation.
--- NOTE | 2019-11-30 19:00 | NUR ---
Bedside report given to TATO Ashford.
[2019-11-30 21:12] LABS: ARTERIAL BLD GAS O2 SATURATION 94.7 % (92-100); ARTERIAL BLD GAS TCO2 CT 32.3; ARTERIAL BLOOD GAS BASE EXCESS 8.2 (-2-2); ARTERIAL BLOOD GAS HCO3 31.1 meq/L (22-26); ARTERIAL BLOOD GAS PCO2 37.3 mmHg (35-45); ARTERIAL BLOOD GAS PO2 69.3 mmHg (80-100); ARTERIAL BLOOD GAS pH 7.54 (7.35-7.45)
[2019-12-01] VITALS (773 sets, daily range): BP systolic 88–136; BP diastolic 60–87; PULSE 63–80; TEMP 97–98.6; O2SAT 87–99
[2019-12-01 04:49] LABS: GRAN % 92.2 % (42.2-75.2); HEMATOCRIT 45.8 % (37.0-47.0); LYMPH # 0.1 (1.2-3.4); LYMPH % 2.2 % (20.0-51.0); MEAN CELL VOLUME 91 fl (80.0-100.0); MEAN CORPUSCULAR HEMOGLOBIN 30 pg (27.0-31.0); MEAN CORPUSCULAR HGB CONC 33 g/dl (33.0-37.0); MEAN PLATELET VOLUME 11.3 fl (7.4-10.4); MONO # 0.3 (0.1-0.6); MONO % 5.4 % (1.7-9.3); PLATELET COUNT 106 K/mm3 (130-400); RED BLOOD COUNT 5.05 M/mm3 (4.10-5.30); REDCELL DISTRIBUTION WIDTH-CV 15.2 % (11.5-14.5)
[2019-12-01 04:52] LABS: HEMOGLOBIN 14.9 g/dl (12.5-16.0)
[2019-12-01 05:07] LABS: ALBUMIN 2.6 gm/dL (3.5-5.0); CALCIUM 7.6 mg/dL (8.4-10.2); CREATININE, serum 1.18 (0.52-1.25); PHOSPHOROUS 3.1 mg/dL (2.5-4.5); POTASSIUM 3.1 mmol/L (3.4-5.0); TOTAL PROTEIN 4.6 gm/dL (6.4-8.2)
[2019-12-01 06:19] LABS: ARTERIAL BLD GAS O2 SATURATION 94.4 % (92-100); ARTERIAL BLD GAS TCO2 CT 31.4; ARTERIAL BLOOD GAS BASE EXCESS 6.9 (-2-2); ARTERIAL BLOOD GAS HCO3 30.3 meq/L (22-26); ARTERIAL BLOOD GAS PCO2 38.6 mmHg (35-45); ARTERIAL BLOOD GAS PO2 66.5 mmHg (80-100); ARTERIAL BLOOD GAS pH 7.51 (7.35-7.45)
--- NOTE | 2019-12-01 07:45 | NUR ---
PT VERY RESTLESS ON VERSED. SPOKE WITH . WILL CHANGE FROM VERSED TO PROPOFOL AND FENTYNL. MAKING SURE TO MONITOR FOR BRADYCARDIA AND HYPOTENTION.
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
--- NOTE | 2019-12-01 13:13 | NUR ---
The patient remains intubated. environmental services technician will continue to follow.
--- NOTE | 2019-12-01 13:49 | NUR ---
notified of 's recommendations. RT also notified regarding ET tube.
--- NOTE | 2019-12-01 17:00 | NUR ---
Pt becomes very restless with any movement or touching. Pt bites at ET tube and becomes tachycardic. PT will open eyes to voice but will not follow commands. Pt moving all extremeties. Sedation not decreased at this time. Will continue to montior.
[2019-12-02] VITALS (737 sets, daily range): BP systolic 95–125; BP diastolic 7–87; PULSE 60–72; TEMP 97.7–98.1; O2SAT 55–100
[2019-12-02 04:50] LABS: ARTERIAL BLD GAS O2 SATURATION 96.4 % (92-100); ARTERIAL BLD GAS TCO2 CT 34.4; ARTERIAL BLOOD GAS BASE EXCESS 8.6 (-2-2); ARTERIAL BLOOD GAS PCO2 43.8 mmHg (35-45); ARTERIAL BLOOD GAS PO2 80.9 mmHg (80-100)
[2019-12-02 06:49] LABS: HEMATOCRIT 48.1 % (37.0-47.0); HEMOGLOBIN 15.7 g/dl (12.5-16.0); MEAN CELL VOLUME 92 fl (80.0-100.0); MEAN CORPUSCULAR HEMOGLOBIN 30 pg (27.0-31.0); MEAN CORPUSCULAR HGB CONC 33 g/dl (33.0-37.0); MEAN PLATELET VOLUME 12.1 fl (7.4-10.4); PLATELET COUNT 117 K/mm3 (130-400); RED BLOOD COUNT 5.23 M/mm3 (4.10-5.30); REDCELL DISTRIBUTION WIDTH-CV 15.6 % (11.5-14.5)
[2019-12-02 06:57] LABS: ALBUMIN 2.8 gm/dL (3.5-5.0); BILIRUBIN,TOTAL 1.1 mg/dL (0.0-1.0); CALCIUM 7.5 mg/dL (8.4-10.2); CREATININE, serum 1.32 (0.52-1.25); PHOSPHOROUS 2.9 mg/dL (2.5-4.5); POTASSIUM 3.8 mmol/L (3.4-5.0); TOTAL PROTEIN 5.1 gm/dL (6.4-8.2)
--- NOTE | 2019-12-02 07:10 | NUR ---
Bedside report recieved from TATO Umaña. Patient intubeated and sedated. 7.5 ETT placement verified at 21cm@teeth and OG tube placement verified 55cm@lip. Ventilator settings confirmed. Propofol gtt running at 20mcg/kg/min with concentration and weight based dosing verified. Tube feed running to OG at goal rate of 47ml per hour with flushes programed. Cassidy with positive UO noted. Restraints in place per orders. Patient with protective positioning with repositioning in bed. Care assumed at this time.
--- NOTE | 2019-12-02 09:48 | NUR ---
Dr. Banks rounds at this time. Orders as entered CPOE.
[2019-12-02 10:26] LABS: BAND 7 % (0-10); LYMPHOCYTE 3 % (20.0-51.0); NEUTROPHILS 89 % (42.0-75.2)
[2019-12-02 10:27] LABS: ANISOCYTOSIS 1+; PLATELET ESTIMATE NORMAL (NORMAL)
--- NOTE | 2019-12-02 11:57 | NUR ---
Beside bronchoscopy completed by Dr. Banks. Start time: 1146 End time: 1150 Prior consent signed and placed on chart. See Moderate sedation assessment, flowsheet, and recovery for associated documentation. 20mg bolus of propofol provided from pump per MD verbal order prior to begining of procedure. This RN at bedside to monitor and assist as well as Patience, RT. Patient is placed on 60% FiO2 by RT prior to procedure and VS are set to cycle Q5MIN by RN. Patient tolerates procedure without complication. Bronch washings sent to lab as per orders. Care ongoing.
--- NOTE | 2019-12-02 12:12 | NUR ---
Dr. Seymour rounds on patient at this time. No new orders receieved. Care ongoing.
--- NOTE | 2019-12-02 19:42 | NUR ---
Assessment completed and charted at this time, please see documentation for details. Patient tolerating ventilator well at this time, no issues to report. No family present for teaching or questions. Will continue to monitor patient.
--- NOTE | 2019-12-02 22:32 | NUR ---
Patient having oxygen saturations in the mid to low 80's, denied nurse turning oxygen up to help him breath. Patient utilizing accessory muscles, having increased work of breathing at this time despite morphine for air hunger. BARB Mcgill called to discuss with patient options. *2242: Patient "wants to be comfortable." BARB Mcgill discussed with patient the possibility of medications supressing respiratory drive, patient ok with this decision, but wants to wait for . called at this time, no answer, left message. *2245, 2250 called no answer. [facility] dispatch called at *2258 for location of and sent to family residence. *2310: called back, said she will be on her way, PD dispatch called and re-routed officer. Staying with patient until family is available.
[2019-12-03] VITALS (759 sets, daily range): BP systolic 101–119; BP diastolic 70–77; PULSE 58–75; TEMP 97.5–98; O2SAT 90–100
[2019-12-03 04:48] LABS: ARTERIAL BLD GAS O2 SATURATION 93.4 % (92-100); ARTERIAL BLOOD GAS HCO3 34.6 meq/L (22-26); ARTERIAL BLOOD GAS PCO2 45.3 mmHg (35-45); ARTERIAL BLOOD GAS PO2 65.5 mmHg (80-100)
[2019-12-03 05:43] LABS: HEMATOCRIT 48.8 % (37.0-47.0); HEMOGLOBIN 15.7 g/dl (12.5-16.0); MEAN CELL VOLUME 92 fl (80.0-100.0); MEAN CORPUSCULAR HEMOGLOBIN 30 pg (27.0-31.0); MEAN CORPUSCULAR HGB CONC 32 g/dl (33.0-37.0); MEAN PLATELET VOLUME 11.6 fl (7.4-10.4); PLATELET COUNT 103 K/mm3 (130-400); RED BLOOD COUNT 5.31 M/mm3 (4.10-5.30); REDCELL DISTRIBUTION WIDTH-CV 15.4 % (11.5-14.5)
[2019-12-03 05:51] LABS: ALBUMIN 2.8 gm/dL (3.5-5.0); BILIRUBIN,TOTAL 0.9 mg/dL (0.0-1.0); CALCIUM 7.7 mg/dL (8.4-10.2); CREATININE, serum 1.16 (0.52-1.25); PHOSPHOROUS 2.5 mg/dL (2.5-4.5); POTASSIUM 3.5 mmol/L (3.4-5.0)
[2019-12-03 06:02] LABS: BAND 2 % (0-10); LYMPHOCYTE 1 % (20.0-51.0); NEUTROPHILS 95 % (42.0-75.2); PLATELET ESTIMATE DECREASED (NORMAL)
--- NOTE | 2019-12-03 07:15 | NUR ---
Bedside report recieved from TATO Umaña. Patient remains sedated and ventilated. ETT and OG tube placement verified. Vent settings reviewed. Propofol gtt running at 20mcg/kg/min to uncomplicated GONZALEZ PICC. Cassidy with with minimal but positive UO. Restraints in place as per order. Bed in low and locked position, call light within reach, rails upx3. Care assumed.
--- NOTE | 2019-12-03 11:10 | NUR ---
ETT PULLED BACK TO 19 CM @ TEETH PER DR. FROST
--- NOTE | 2019-12-03 11:22 | NUR ---
Fentanyl gtt initiated per VORb by Dr. Banks secondary to bradycardia suspected to be secondary to propofol administration. Will titrate propofol down accordingly. See associated documentation
--- NOTE | 2019-12-03 19:31 | NUR ---
PT FAILED EVENING WEANING TRIAL WILL BE DONE AGAIN IN THE MORNING USUAL
--- NOTE | 2019-12-03 19:48 | NUR ---
Patient assessment completed and charted at this time, please see documentation for details. Patient family at bedside, patient awake, comfortable, denies needing any additional needs at this time. Will continue to monitor.
[2019-12-04] VITALS (751 sets, daily range): BP systolic 98–119; BP diastolic 66–85; PULSE 64–96; TEMP 97.8–98.1; O2SAT 87–100
--- NOTE | 2019-12-04 03:50 | NUR ---
Patient assessment completed, please see documentation for details. Patient tolerating ventilator well at this time. Awake and alert, patient communicated comfort level is good.
[2019-12-04 04:56] LABS: ARTERIAL BLD GAS TCO2 CT 36.2; ARTERIAL BLOOD GAS BASE EXCESS 9.5 (-2-2); ARTERIAL BLOOD GAS HCO3 34.7 meq/L (22-26); ARTERIAL BLOOD GAS PCO2 47.9 mmHg (35-45); ARTERIAL BLOOD GAS PO2 71.9 mmHg (80-100); ARTERIAL BLOOD GAS pH 7.48 (7.35-7.45)
[2019-12-04 05:33] LABS: BASO % 0.1 % (0.0-2.0); HEMATOCRIT 49.6 % (37.0-47.0); HEMOGLOBIN 15.6 g/dl (12.5-16.0); LYMPH # 0.3 (1.2-3.4); LYMPH % 3.2 % (20.0-51.0); MEAN CELL VOLUME 93 fl (80.0-100.0); MEAN CORPUSCULAR HEMOGLOBIN 29 pg (27.0-31.0); MEAN CORPUSCULAR HGB CONC 32 g/dl (33.0-37.0); MONO # 0.5 (0.1-0.6); MONO % 6.1 % (1.7-9.3); PLATELET COUNT 96 K/mm3 (130-400); RED BLOOD COUNT 5.33 M/mm3 (4.10-5.30); REDCELL DISTRIBUTION WIDTH-CV 15.4 % (11.5-14.5)
[2019-12-04 05:42] LABS: ALBUMIN 2.8 gm/dL (3.5-5.0); BILIRUBIN,TOTAL 0.8 mg/dL (0.0-1.0); CALCIUM 7.6 mg/dL (8.4-10.2); CREATININE, serum 1.05 (0.52-1.25); MAGNESIUM 2.3 mg/dL (1.6-2.3); PHOSPHOROUS 2.3 mg/dL (2.5-4.5); POTASSIUM 3.5 mmol/L (3.4-5.0)
[2019-12-04 05:49] LABS: PRE ALBUMIN 20.1 mg/dL (17.6-36.0)
--- NOTE | 2019-12-04 06:25 | NUR ---
PT IS ON WEANING TRIAL ADRIEL WELL WITH NO DISTRESS NOTED AT THIS TIME. WILL CONTINUE TO MONITOR AND ASSES
--- NOTE | 2019-12-04 07:15 | NUR ---
Report received from Leeroy GODWIN and care resumed.
--- NOTE | 2019-12-04 07:25 | NUR ---
Dr Banks in to see pt at this time.
--- NOTE | 2019-12-04 11:44 | NUR ---
BEATA Tavarez, states they now have an open case and will at patient's beside today at 1:30.
--- NOTE | 2019-12-04 17:16 | NUR ---
Pt easily wakes to speech opens eyes and follows commands. No plan for cpap trial again until AM. No neurological concerns. Pt stable on current rate of sedation.
--- NOTE | 2019-12-04 19:24 | NUR ---
Report given to Leeroy GODWIN and care transfered.
[2019-12-05] VITALS (1042 sets, daily range): BP systolic 93–152; BP diastolic 65–107; PULSE 69–85; TEMP 97.3–98.9; O2SAT 86–100
--- NOTE | 2019-12-05 04:15 | NUR ---
Assessment completed and charted at this time, please see documentation for details. Patient tube feeds still on hold, eICU has been notified and did not feel comfortable starting tube feeds back due to technology issues with [employer].
[2019-12-05 04:56] LABS: CALCIUM 7.7 mg/dL (8.4-10.2); CREATININE, serum 0.96 (0.52-1.25); POTASSIUM 3.8 mmol/L (3.4-5.0)
[2019-12-05 05:12] LABS: BASO % 0.2 % (0.0-2.0); EOS % 0.2 % (0-4.0); GRAN # 5.2 (1.4-6.5); GRAN % 81.6 % (42.2-75.2); HEMATOCRIT 50.8 % (37.0-47.0); HEMOGLOBIN 15.9 g/dl (12.5-16.0); LYMPH # 0.7 (1.2-3.4); LYMPH % 10.2 % (20.0-51.0); MEAN CELL VOLUME 93 fl (80.0-100.0); MEAN CORPUSCULAR HEMOGLOBIN 29 pg (27.0-31.0); MEAN CORPUSCULAR HGB CONC 31 g/dl (33.0-37.0); MEAN PLATELET VOLUME 12.4 fl (7.4-10.4); MONO # 0.5 (0.1-0.6); PLATELET COUNT 89 K/mm3 (130-400); RED BLOOD COUNT 5.49 M/mm3 (4.10-5.30); REDCELL DISTRIBUTION WIDTH-CV 15.5 % (11.5-14.5)
[2019-12-05 06:08] LABS: ARTERIAL BLD GAS O2 SATURATION 97.8 % (92-100); ARTERIAL BLOOD GAS BASE EXCESS 7.8 (-2-2); ARTERIAL BLOOD GAS HCO3 30.8 meq/L (22-26); ARTERIAL BLOOD GAS PCO2 37.5 mmHg (35-45); ARTERIAL BLOOD GAS PO2 85.3 mmHg (80-100); ARTERIAL BLOOD GAS pH 7.53 (7.35-7.45)
--- NOTE | 2019-12-05 07:40 | NUR ---
TRIAL ONLY GETTING 180'S TO 220 IN VT, PT PUT BACK ON SET VT.
--- NOTE | 2019-12-05 08:39 | NUR ---
Tube feeding resumed at 25ml/hr. Was held overnight d/t increased residuals. Residual now zero. Will return to goal rate of 47ml following residual check at noon. Sedation resumed following Dr Banks's assessment. Tentatively planning for trach and peg tom or . [facility] notified of consult.
--- NOTE | 2019-12-05 11:31 | NUR ---
Dangles at bedside x5min. Staff assists only with getting to position, patient holds self upright while dangling using only foot of bed to remain balanced.
--- NOTE | 2019-12-05 13:56 | NUR ---
Dr. Banks to have a family meeting tomorrow, Wednesday, 12/06 at 0800. TEST DESIGN ENGINEER student will be in attendance. The patient's nurse informed the patient's , Justo. nursing services manager will continue to follow.
--- NOTE | 2019-12-05 16:07 | NUR ---
RN DID ORAL CARE WITH RT IN ROOM.
--- NOTE | 2019-12-05 16:54 | NUR ---
Alert, following commands. Able to assist with bed mobility with minimal assistance. Requires reminders to slow down her breathing as rate has gotten as high as 35. Pt nods to reminder and slows accordingly. Tube feeding residuals are matching the rate of her feedings. Holding at this time.
--- NOTE | 2019-12-05 20:46 | NUR ---
PT AT 40 MCG/KG/MIN AT SHIFT CHANGED.
[2019-12-06] VITALS (1166 sets, daily range): BP systolic 117–142; BP diastolic 81–101; PULSE 66–90; TEMP 97.8–98.6; O2SAT 86–100
--- NOTE | 2019-12-06 02:24 | NUR ---
0000 - PT'S TF STILL ON HOLD, THIS LADDER OPERATOR DECIDED TO CHECK RESIDUALS AND GOT 75 ML, ABOUT THE SAME AMOUNT THE DAY SHIFT NURSE GOT DURING THE DAY. ALSO, THE COLOR OF THE FLUID IS LIGHT BROWN WITH LITTLE SEDIMENTS IN IT. 0200 - WHILE TURNING PT, THIS LADDER OPERATOR AND TATO GONZALEZ NOTICED THE COLOR OF THE URINE IN THE TREVIÑO CATHETER TUBING THAT IS LIGHT BROWN WITH SEDIMENTS IN IT WELL THAT LOOKS LIKE HEMATURIA. NO SIGNS OF ACTIVE BLEEDING OR ANY OOZING NOTED AT THIS TIME. 0220 - E CARE NOTIFIED OF BOTH ASSESSMENTS, AWAITING FOR ORDERS OR CALL BACK. WILL CONTINUE TO MONITOR.
[2019-12-06 05:25] LABS: EOS % 0.2 % (0-4.0); GRAN # 5.2 (1.4-6.5); HEMATOCRIT 49.6 % (37.0-47.0); HEMOGLOBIN 15.8 g/dl (12.5-16.0); LYMPH # 0.6 (1.2-3.4); LYMPH % 9.4 % (20.0-51.0); MEAN CELL VOLUME 92 fl (80.0-100.0); MEAN CORPUSCULAR HEMOGLOBIN 29 pg (27.0-31.0); MEAN CORPUSCULAR HGB CONC 32 g/dl (33.0-37.0); MEAN PLATELET VOLUME 12.6 fl (7.4-10.4); MONO # 0.3 (0.1-0.6); MONO % 4.4 % (1.7-9.3); PLATELET COUNT 97 K/mm3 (130-400); RED BLOOD COUNT 5.42 M/mm3 (4.10-5.30); REDCELL DISTRIBUTION WIDTH-CV 15.2 % (11.5-14.5)
[2019-12-06 05:28] LABS: ARTERIAL BLD GAS O2 SATURATION 97.4 % (92-100); ARTERIAL BLD GAS TCO2 CT 29.2; ARTERIAL BLOOD GAS BASE EXCESS 5.1 (-2-2); ARTERIAL BLOOD GAS PCO2 36.2 mmHg (35-45); ARTERIAL BLOOD GAS PO2 82.6 mmHg (80-100); ARTERIAL BLOOD GAS pH 7.51 (7.35-7.45)
[2019-12-06 06:09] LABS: ALBUMIN 2.7 gm/dL (3.5-5.0); BILIRUBIN,TOTAL 0.8 mg/dL (0.0-1.0); CALCIUM 7.9 mg/dL (8.4-10.2); CREATININE, serum 0.9 (0.52-1.25); MAGNESIUM 1.9 mg/dL (1.6-2.3); PHOSPHOROUS 3.3 mg/dL (2.5-4.5); POTASSIUM 3.7 mmol/L (3.4-5.0); TOTAL PROTEIN 5.1 gm/dL (6.4-8.2)
[2019-12-06 06:16] LABS: PRE ALBUMIN 22.1 mg/dL (17.6-36.0)
--- NOTE | 2019-12-06 07:21 | NUR ---
Report received from Opal GODWIN and care resumed.
--- NOTE | 2019-12-06 08:15 | NUR ---
PICC intact right upper arm with sterile dressing change done with insertion site cleansed with chloraprep x 1, chlohexidine impregnated disk applied, skin prep, stat lock, and tegaderm applied. no signs or symptoms of IV complications noted. continue to monitor.
--- NOTE | 2019-12-06 08:28 | NUR ---
ANTELMO milton attended a meeting with Dr. Banks, the patient's nurse, Lena and the patient's , Justo. Justo was agreeable to a trach and peg. Dr. Banks is recommending a LTAC. After the meeting ANTELMO milton met with Justo and presented [email or web address]'s list of LTACs. Justo chose [facility] in [place]. ANTELMO student faxed referral. Awaiting response. lEgin reports he can meet with Justo tomorrow, 12/07. payroll services analyst will continue to follow.
[2019-12-06 09:25] LABS: CHOLESTEROL 156 mg/dL (120-200); TRIGLYCERIDE 146 mg/dL
--- NOTE | 2019-12-06 11:15 | NUR ---
Dr Vinson in to see pt at this time.
--- NOTE | 2019-12-06 13:43 | NUR ---
Elgin from [facility] reports the patient meets criteria and they can accept the patient once the trach and peg is placed. The team was notifed. guest services will continue to follow.
--- NOTE | 2019-12-06 15:42 | NUR ---
SUCTIONED RED SECRETIONS, RN NOTIFIED.
--- NOTE | 2019-12-06 19:31 | NUR ---
Report given to Gasper GODWIN and care transfered.
[2019-12-07] VITALS (754 sets, daily range): BP systolic 97–140; BP diastolic 62–108; PULSE 72–95; TEMP 97.4–98.9; O2SAT 85–100
[2019-12-07 05:52] LABS: CALCIUM 7.8 mg/dL (8.4-10.2); CREATININE, serum 0.84 (0.52-1.25); MAGNESIUM 1.9 mg/dL (1.6-2.3); PHOSPHOROUS 3.1 mg/dL (2.5-4.5); POTASSIUM 3.3 mmol/L (3.4-5.0)
[2019-12-07 05:58] LABS: ARTERIAL BLD GAS O2 SATURATION 97.4 % (92-100); ARTERIAL BLD GAS TCO2 CT 25.9; ARTERIAL BLOOD GAS BASE EXCESS 2.1 (-2-2); ARTERIAL BLOOD GAS HCO3 24.8 meq/L (22-26); ARTERIAL BLOOD GAS PCO2 33.5 mmHg (35-45); ARTERIAL BLOOD GAS PO2 88.2 mmHg (80-100); ARTERIAL BLOOD GAS pH 7.49 (7.35-7.45)
--- NOTE | 2019-12-07 08:30 | NUR ---
Pt's states they have discussed procedures with him yesterday and he has no questions at this time. Consents signed.
[2019-12-07 08:51] LABS: BASO % 0.2 % (0.0-2.0); EOS % 0.9 % (0-4.0); GRAN # 2.3 (1.4-6.5); HEMOGLOBIN 15.7 g/dl (12.5-16.0); LYMPH # 1.6 (1.2-3.4); LYMPH % 36.3 % (20.0-51.0); MEAN CELL VOLUME 92 fl (80.0-100.0); MEAN CORPUSCULAR HEMOGLOBIN 29 pg (27.0-31.0); MEAN CORPUSCULAR HGB CONC 32 g/dl (33.0-37.0); MEAN PLATELET VOLUME 12.9 fl (7.4-10.4); MONO # 0.4 (0.1-0.6); MONO % 9.2 % (1.7-9.3); PLATELET COUNT 96 K/mm3 (130-400); RED BLOOD COUNT 5.34 M/mm3 (4.10-5.30); REDCELL DISTRIBUTION WIDTH-CV 15.3 % (11.5-14.5)
--- NOTE | 2019-12-07 11:30 | NUR ---
PT TO OR FOR TRACH AND PEG. TPN AND PROPOFOL STOPPED PER ANESTHESIA.
--- NOTE | 2019-12-07 12:52 | NUR ---
CALLED REGARDING CONSULT.
--- NOTE | 2019-12-07 13:00 | NUR ---
PT RETURNED FROM OR. PT HAS A 6SHILEY CUFFED TRACH. RT BEDSIDE FOR VENTILATOR. PT HAS BLOODY DRAINAGE TO TRACH. NECK CLEANED AND NEW GAUZE APPLIED. PT PLACED ON VERSED AND PROPOFOL STOPPED PRIOR TO OR.
--- NOTE | 2019-12-07 13:27 | NUR ---
RT ASSISTED IN PUTTING PT BACK ON VENT AFTER RETURNING FROM OR WITH TRACH. PT NOW HAS A #6 SHILEY CUFFED AND INFLATED.
--- NOTE | 2019-12-07 16:25 | NUR ---
CLARIFIED WITH REGARDING USE OF PEG TUBE. OK TO USE STARTING TOMORROW.
--- NOTE | 2019-12-07 17:04 | NUR ---
PT IS AWAKE AND MOVING ALL EXTREMETIES. PT ABLE TO FOLLOW COMMANDS. PT PREVIOUSLY RESTLESS AND VERSED WAS INCREASED FROM 2 TO 3. PT RESTING COMFORTABLY AT THIS TIME. WILL CONTNIUE TO MONTIOR.
--- NOTE | 2019-12-07 18:33 | NUR ---
PT HAVING A MODERATE AMOUNT OF BLEEDING AROUND TRACH. DISCUSSED WITH . WILL HOLD OFF ON HEPARIN UNTIL TOMORROW.
[2019-12-08] VITALS (601 sets, daily range): BP systolic 95–122; BP diastolic 60–86; PULSE 76–96; TEMP 97.5–99.3; O2SAT 79–100
[2019-12-08 05:08] LABS: EOS % 0.9 % (0-4.0); GRAN % 57.2 % (42.2-75.2); HEMATOCRIT 48.5 % (37.0-47.0); HEMOGLOBIN 15.6 g/dl (12.5-16.0); LYMPH % 27.6 % (20.0-51.0); MEAN CELL VOLUME 92 fl (80.0-100.0); MEAN CORPUSCULAR HEMOGLOBIN 30 pg (27.0-31.0); MEAN CORPUSCULAR HGB CONC 32 g/dl (33.0-37.0); MEAN PLATELET VOLUME 11.9 fl (7.4-10.4); MONO # 0.5 (0.1-0.6); MONO % 13.1 % (1.7-9.3); PLATELET COUNT 96 K/mm3 (130-400); RED BLOOD COUNT 5.28 M/mm3 (4.10-5.30)
[2019-12-08 05:22] LABS: CALCIUM 7.6 mg/dL (8.4-10.2); CREATININE, serum 0.74 (0.52-1.25); MAGNESIUM 1.8 mg/dL (1.6-2.3); PHOSPHOROUS 3.3 mg/dL (2.5-4.5); POTASSIUM 3.6 mmol/L (3.4-5.0)
[2019-12-08 06:24] LABS: ARTERIAL BLD GAS O2 SATURATION 96.2 % (92-100); ARTERIAL BLD GAS TCO2 CT 28.8; ARTERIAL BLOOD GAS BASE EXCESS 3.6 (-2-2); ARTERIAL BLOOD GAS HCO3 27.6 meq/L (22-26); ARTERIAL BLOOD GAS PCO2 39.7 mmHg (35-45); ARTERIAL BLOOD GAS PO2 74.9 mmHg (80-100); ARTERIAL BLOOD GAS pH 7.46 (7.35-7.45)
--- NOTE | 2019-12-08 07:00 | NUR ---
Report given to TATO Haywood.
--- NOTE | 2019-12-08 09:50 | NUR ---
PT'S AT BEDSIDE. PT BEGAN COUGHING SO I WENT IN TO CHECK ON PATIENT. PATIENT AWAKE AND ORIENTED AND ABLE TO RESPONS APPROPRIATELY TO QUESTIONS. PATIENT'S ASKED IF I COULD GIVE PATIENT MEDICINE TO RELAX HER. PT BEGAN SHAKING HEAD NO AND CLEARLY MOUTHED "NO MEDICINE" I ASKED AGAIN TO CONFIRM WHAT PATIENT WAS SAYING AND AGAIN SHE CLEARLY MOUTHED "NO MEDICINE" I THEN ASKED IF PATIENT WAS COMFORTABLE AND SHE SHOOK HER HEAD. I ASKED IF I COULD REPOSITION HER AND SHE MOUTHED AND POINTED TOWARDS ME SAYING "YOU. GO AWAY." I ASKED AGAIN TO CONFIRM AND ASKED IF PATIENT WAS WANTING ME TO GO AWAY AND SHE AGAIN NODDED AND MOUTHED "YOU. GO AWAY." I TOLD PATIENT I WOULD LEAVE HER BE FOR AWHILE BUT WOULD CHECK IN ON HER IN A LITTLE BIT TO SEE IF SHE NEEDED ANYTHING.
--- NOTE | 2019-12-08 10:55 | NUR ---
ATTEMPTED TO TURN PATIENT AND PATIENT BEGAN WAVING HAND MOUTHING "GO AWAY"
--- NOTE | 2019-12-08 11:24 | NUR ---
PATIENT IN BETTER SPIRITS AND IS BEING MORE PLEASANT. PATIENT SITTING UP IN BED, WATCHING TELEVISION.
--- NOTE | 2019-12-08 11:41 | NUR ---
TELEGRAPH PLANT MAINTAINER student faxed updates to [place].
--- NOTE | 2019-12-08 13:18 | NUR ---
PT WROTE "POLICE" TO CELLOPHANE BAG MACHINE OPERATOR. WHEN I ASKED PATIENT WHAT SHE WANTED THE POLICE FOR SHE POINTED TO HER RESTRAINTS. I TOLD PATIENT THAT I COULD TAKE THEM OFF LONG SHE DIDN'T PULL ON ANYTHING. PT NODDED IN AGREEANCE THAT SHE WOULDN'T PULL ON ANYTHING. PT'S RESTRAINTS REMOVED. I AGAIN ASKED PATIENT IF SHE NEEDED ANYTHING AND SHE AGAIN GESTURED AND MOUTHED FOR ME TO "GO AWAY"
--- NOTE | 2019-12-08 14:35 | NUR ---
WHILE OUT OF PATIENT'S ROOM I HEARD THE VENT ALARM GOING OFF. I WENT INTO CHECK VENT AND PATIENT HAD VENT TUBING IN HER HAND. I TRIED TO HOOK VENT BACK TO TRACH TUBE AND PT SQUEEZED ONTO TUBING AND WOULD NOT LET GO. I ASKED PATIENT IF SHE HAD PULLED VENT OFF ON PURPOSE AND SHE NODDED YES. I ASKED AGAIN TO CONFIRM THAT PATIENT INTENTIONALLY PULLED VENT OFF AND SHE AGAIN NODDED YES. I THEN TOLD PATIENT THAT I WOULD HAVE TO PUT RESTRAINTS BACK ON PATIENT BC IT IS DANGEROUS IF SHE PULLS TRACH TUBE AND VENT OFF/OUT. RESTRAINTS PUT BACK ON PATIENT.
--- NOTE | 2019-12-08 16:38 | NUR ---
PT REFUSING ALL ORAL CARE AT THIS TIME
--- NOTE | 2019-12-08 17:37 | NUR ---
CLARIFIED WITH DR BASS THAT IT IS OK TO USE PT'S PEG TUBE
--- NOTE | 2019-12-08 19:45 | NUR ---
Pt refuses part or oral care, accepted moisturizer.
[2019-12-09] VITALS (33 sets, daily range): BP systolic 110–125; BP diastolic 79–91; PULSE 87–98; TEMP 98–98.2; O2SAT 92–100
--- NOTE | 2019-12-09 02:09 | NUR ---
PT has been refusing cares and repositioning. Will motion questioning what interventions staff are doing but will roll eyes, motion her hands by flinging them at staff when we begin to explain what we're doing and why. Has mouthed "I want to get out of here" several times throughout the night.
--- NOTE | 2019-12-09 03:12 | NUR ---
PT wrote on her markerboard "police" when asked why she wanted them, she mouthed that she was being held here, wanted to leave. Informed that she is unable to leave with all the equipment she is on and would not be able to breathe, mouthed "I know!". Glared and pointed at me when I explained why. Reminded the patient that she had been in the hospital for over one week, had fallen several times at home, needed to be intubated. While explaining this, PT repeatedly shook her head back and forth, closed her eyes, sighed, and stopped arguing with staff.
--- NOTE | 2019-12-09 03:53 | NUR ---
Pt refuses oral care at this time.
[2019-12-09 04:40] LABS: EOS # 0.1 (0.0-0.7); EOS % 1.2 % (0-4.0); GRAN # 2.9 (1.4-6.5); GRAN % 68.6 % (42.2-75.2); HEMATOCRIT 51.9 % (37.0-47.0); HEMOGLOBIN 16.2 g/dl (12.5-16.0); LYMPH # 0.9 (1.2-3.4); LYMPH % 20.8 % (20.0-51.0); MEAN CELL VOLUME 94 fl (80.0-100.0); MEAN CORPUSCULAR HEMOGLOBIN 29 pg (27.0-31.0); MEAN CORPUSCULAR HGB CONC 31 g/dl (33.0-37.0); MEAN PLATELET VOLUME 12.4 fl (7.4-10.4); MONO # 0.4 (0.1-0.6); MONO % 8.5 % (1.7-9.3); PLATELET COUNT 116 K/mm3 (130-400); RED BLOOD COUNT 5.52 M/mm3 (4.10-5.30); REDCELL DISTRIBUTION WIDTH-CV 15.1 % (11.5-14.5)
[2019-12-09 04:50] LABS: CALCIUM 8.1 mg/dL (8.4-10.2); CREATININE, serum 0.62 (0.52-1.25); MAGNESIUM 1.8 mg/dL (1.6-2.3); PHOSPHOROUS 2.9 mg/dL (2.5-4.5); POTASSIUM 3.6 mmol/L (3.4-5.0)
[2019-12-09 05:52] LABS: ARTERIAL BLD GAS O2 SATURATION 97.5 % (92-100); ARTERIAL BLOOD GAS BASE EXCESS 3.2 (-2-2); ARTERIAL BLOOD GAS HCO3 25.2 meq/L (22-26); ARTERIAL BLOOD GAS PCO2 31.7 mmHg (35-45); ARTERIAL BLOOD GAS PO2 87.7 mmHg (80-100); ARTERIAL BLOOD GAS pH 7.52 (7.35-7.45)
--- NOTE | 2019-12-09 06:36 | NUR ---
Throughout the night PT has been agitated, rolling eyes at staff, swinging call light at staff, attempted to swat at us, and attempting to pull off her ventilator attachment. PT was reminded that she cannot pull at the vent attachement, her behavior was inappropriate, and her restraints were tightened. However at other points in the night, PT would be pleasant and tell staff thank you. PT mood has varied back and forth. PT refused turns, oral care, and to have her lights shut off so she could rest. Has not slept at all tonight. PT did allow staff to turn her to replace her bedding after using the bedpan.
--- NOTE | 2019-12-09 07:00 | NUR ---
Report given to TATO Lafleur.
--- NOTE | 2019-12-09 09:29 | NUR ---
REPORT CALLED TO ABLE RN AT [facility]. ALL QUESITONS ANSWERED. BEDSIDE AND SIGNED CONSENT FOR TRANSFER. EMS IS TO TRANSFER AT 1100.
--- NOTE | 2019-12-09 11:22 | NUR ---
EMS here to transport Pt. Pt transfered to [facility]. Pt placed on transport vent. Report given. All questions answered.
--- NOTE | 2019-12-09 11:51 | NUR ---
ABLE RN CALLED THIS RN WITH MED CLARIFICATIONS. ALL QUESITONS ANSWERED. PICC CATHETER DISCHARGE ORDERS FILLED OUT AND FAXED TO [facility].
--- NOTE | 2019-12-11 08:41 | NUR ---
The patient discharged, to [facility] hospital in .
--- NOTE | 2019-12-12 09:44 | NUR ---
CATH LAB student contacted Alyssa with [facility] to inform her that the patient transferred to [facility] in [facility]. Alyssa would like to have a point of contact at [facility] to discuss the patient not being able to return home at discharge. This is due to the patient's not being able to properly care for the patient. If the patient were to return home the patient would likely be hospitalized due to lack of proper care. CATH LAB student contacted Elgin with [facility], left message.
--- NOTE | 2019-12-12 09:58 | NUR ---
The employment evaluator/case manager assigned to the patient at [facility] is Jaylyn Ugarte . BILLING CONTROL CLERK student contacted [facility] and left message with this information.
--- NOTE | 2019-12-14 08:45 | NUR ---
PROCESSING SPEC student contacted Jaylyn Ugarte with [facility]. She reports that the patient will be going to a SNF at discharge. Discharge date unknown.
== END 2019-12-09 11:30 | disposition short-term general hospital (02) | DRG 4 ==
LOC: COL.ER 11:04 → ICU 12:26
PROVIDERS: Emergency Medicine; Internal Medicine; Internal Medicine Nephrology; Internal Medicine Pulmonary Disease; Physician Assistant; Surgery; ADMIT Internal Medicine
PROC: 0B9J8ZZ Drainage of Left Lower Lung Lobe, Via Natural or Artificial Opening Endoscopic (ICD-10-PCS; 2019-11-29)
PROC: 0B9G8ZZ Drainage of Left Upper Lung Lobe, Via Natural or Artificial Opening Endoscopic (ICD-10-PCS; 2019-11-29)
PROC: 02HV33Z Insertion of Infusion Device into Superior Vena Cava, Percutaneous Approach (ICD-10-PCS; 2019-11-29)
PROC: 5A1955Z Respiratory Ventilation, Greater than 96 Consecutive Hours (ICD-10-PCS; 2019-11-30)
PROC: 0BH17EZ Insertion of Endotracheal Airway into Trachea, Via Natural or Artificial Opening (ICD-10-PCS; 2019-11-30)
PROC: 0B9J8ZZ Drainage of Left Lower Lung Lobe, Via Natural or Artificial Opening Endoscopic (ICD-10-PCS; 2019-12-02)
PROC: 0B9G8ZZ Drainage of Left Upper Lung Lobe, Via Natural or Artificial Opening Endoscopic (ICD-10-PCS; 2019-12-02)
PROC: 0DH68UZ Insertion of Feeding Device into Stomach, Via Natural or Artificial Opening Endoscopic (ICD-10-PCS; 2019-12-07)
PROC: 0B110F4 Bypass Trachea to Cutaneous with Tracheostomy Device, Open Approach (ICD-10-PCS; principal; 2019-12-07 11:30)
DX: J96.02 Acute respiratory failure with hypercapnia (principal); J18.9 Pneumonia, unspecified organism; E66.2 Morbid (severe) obesity with alveolar hypoventilation; N17.9 Acute kidney failure, unspecified; J96.01 Acute respiratory failure with hypoxia; I27.81 Cor pulmonale (chronic); J44.9 Chronic obstructive pulmonary disease, unspecified; I27.20 Pulmonary hypertension, unspecified; R00.1 Bradycardia, unspecified; E87.6 Hypokalemia; I95.9 Hypotension, unspecified; D75.1 Secondary polycythemia; R78.89 Finding of other specified substances, not normally found in blood; F17.210 Nicotine dependence, cigarettes, uncomplicated; Z79.52 Long term (current) use of systemic steroids; Z88.0 Allergy status to penicillin; Z88.2 Allergy status to sulfonamides
CPT/HCPCS: 99231-AI; 99233-AI; 99239; A4216; A4217; A4314; C1751; C9113; J0456; J0610; J0692; J1644; J1815; J1940; J2185; J2250; J2704; J2765; J2920; J2930; J3010; J3370; J3475; J3480; J7030; J7050; J7060; J7131; P9047; Q9967

== ENCOUNTER 2020-05-17 10:00 | Outpatient (RCR) | payer MEDICARE, OTHER | END 2020-05-29 10:40 | disposition home or self-care (01) | LOC: WSC 10:00 | DX: R53.1 Weakness (principal); Z91.81 History of falling; Z90.710 Acquired absence of both cervix and uterus ==